=== PATIENT | male | born 1955 | race Caucasian/White ===

== ENCOUNTER 2022-08-25 08:16 | Inpatient (IN) ==
[2022-08-19 14:17] LABS: Basophils # (Auto) 0.04 K/mcL (0.00-0.30); Basophils % (Auto) 0.5 % (0.0-2.0); Eosinophils # (Auto) 0.19 K/mcL (0.00-0.70); Eosinophils % (Auto) 2.3 % (0.0-7.0); Hematocrit 47.8 % (40.1-51.0); Hemoglobin 16.7 g/dL (13.7-17.5); Lymphocytes # (Auto) 2.05 K/mcL (1.50-4.80); Lymphocytes % (Auto) 25.3 % (15.5-49.0); Mean Cell Volume 92.8 fL (80.0-100.0); Mean Corpuscular HGB Conc 34.9 g/dL (31.0-36.0); Mean Platelet Volume 10.2 fL (8.8-12.5); Monocytes # (Auto) 0.57 K/mcL (0.10-0.90); Neutrophils % (Auto) 64.7 % (38.0-78.0); Platelet Count 201 K/mcL (140-440); RBC 5.15 M/mcL (4.63-6.08); Red Cell Distribution Width 12.1 % (11.5-14.5); WBC 8.1 K/mcL (4.5-11.0)
[2022-08-19 14:21] LABS: Appearance,Urine CLEAR (Clear); Bilirubin,Urine Negative (Negative); Color,Urine YELLOW; Culture Indicated,Urine No; Glucose,Urine (UA) Negative (Negative); Ketones,Urine Negative (Negative); Leukocyte Esterase,Urine 25 /uL (Negative); Nitrate,Urine Negative (Negative); Protein,Urine Negative (Negative); Sperm,Urine PRESENT /hpf (Absent); Urine Blood Negative (Negative); Urine RBC 1 /hpf (0-3); Urine Squamous Epithelial Cell 0 /hpf (0-4); Urine WBC 5 /hpf (0-4); Urobilinogen,Urine Negative
[2022-08-19 14:38] LABS: Estimated Average Glucose(eAG) 108 mg/dL; Hemoglobin A1C 5.4 % Hgb (4.0-6.0)
[2022-08-19 15:11] LABS: ALT/SGPT 16 U/L (<40); AST/SGOT 22 U/L (<40); Albumin 4.5 gm/dL (3.2-5.2); Albumin/Globulin Ratio 1.6 (1.0-2.3); Alkaline Phosphatase 90 U/L (39-117); Bilirubin,Total 0.5 mg/dL (0.1-1.0); Blood Urea Nitrogen 13 mg/dL (8-23); Calcium 9.7 mg/dL (8.6-10.4); Carbon Dioxide 25 mmol/L (22-30); Chloride 102 mmol/L (96-108); Globulin 2.8 gm/dL (2.2-3.7); Glomerular Filtration Rate 93; Glucose 97 mg/dL (70-105)
--- NOTE | 2022-08-21 20:43 | EKG ---
[facility] Test Date: 2022-08-19 Pat Name: Leander Quinonez Department: RT Room: Gender: Male Computer Teacher: : [id number] Requested By: Moses Rucker Order Number: [id number] Reading MD: Tan Alvarez Measurements Intervals [place] Rate: 60 P: 6 VT: 174 QRS: -10 QRSD: 95 T: 33 QT: 409 QTc: 407 Interpretive Statements Sinus rhythm Electronically Signed On 08-21-2022 20:43:20 PDT by Tan Alvarez /[email or web address]/[id number]
[~2022-08-25 08:16] MED LIST: 0.9 % SODIUM CHLORIDE 9 ML, KETOROLAC 30 MG, ROPIVACAINE HCL/PF 49.5 ML, EPINEPHrine 0.... IJ SCH; CELECOXIB 200 MG CAPSULE PO SCH; PREGABALIN 75 MG CAPSULE PO SCH; ceFAZolin 2 GM in DEXTROSE 5% IN WATER 50 ML IV SCH; oxyCODONE 10 MG TAB.ER.12H PO SCH
[2022-08-25] MEDS ORDERED: SCOPOLAMINE 1 PATCH PATCH TOPICAL PRN (09:30)
[2022-08-25 09:56] LABS: Hemoglobin A1C 5.4 % Hgb (4.0-6.0)
[2022-08-25] MEDS ORDERED: TRANEXAMIC ACID 1,000 MG/10 ML VIAL ONE (12:23)
[2022-08-25] MEDS ORDERED: ONDANSETRON 4 MG/2 ML VIAL ONE (12:23)
[2022-08-25] MEDS ORDERED: HYDROmorphone 1 MG/ML SYRINGE ONE (12:23)
[2022-08-25] MEDS ORDERED: fentaNYL 250 MCG/5 ML VIAL IV ONE (12:23)
[2022-08-25] MEDS ORDERED: PROPOFOL 200 MG/20 ML VIAL IV ONE (12:23)
[2022-08-25] MEDS ORDERED: SUGAMMADEX SODIUM 200 MG/2 ML VIAL IV ONE (12:23)
[2022-08-25] MEDS ORDERED: ROPIVACAINE HCL/PF 20 ML VIAL IJ ONE (12:23)
[2022-08-25] MEDS ORDERED: ROCURONIUM 10 MG/ML ML IV ONE (12:23)
[2022-08-25] MEDS ORDERED: IPRATROPIUM/ALBUTEROL 3 ML AMPUL.NEB NEB PRN (12:54)
[2022-08-25] MEDS ORDERED: HYDROmorphone 0.5 MG/0.5 ML SYRINGE IV PRN (12:54)
[2022-08-25] MEDS ORDERED: METOCLOPRAMIDE 10 MG/2 ML VIAL IV PRN (12:54)
[2022-08-25] MEDS ORDERED: ONDANSETRON 4 MG/2 ML VIAL IV PRN ×2 (12:54→13:47)
[2022-08-25] MEDS ORDERED: FLUMAZENIL 0.1 MG/ML ML IV PRN (12:54)
[2022-08-25] MEDS ORDERED: NALOXONE HCL 0.4 MG/ML VIAL IV PRN (12:54)
[2022-08-25] MEDS ORDERED: MEPERIDINE 25 MG/ML VIAL IV PRN (12:54)
[2022-08-25] MEDS ORDERED: LACTATED RINGERS 1,000 ML IV SCH (13:00)
--- NOTE | 2022-08-25 13:37 | Brief Operative Note ---
Brief Operative Note Date of procedure: 08/25/22 Pre-op diagnosis: Left knee fractured polyethylene post s/p TKA Post-op diagnosis: same (plus some eburnated overhanging lateral patellar bone) Procedure: 1)Revision left total knee arthroplasty, 1 component (tibial) 2)Shaving of patella Grafts/Implants: Yes ([employer] size 7-8 11mm dished legion insert) Anesthesia: GLMA Findings: fracture polyethylene post, stable implants, eburnated lateral patell overhanging bone Complications: none Surgeon: Moses Ruano Information Security Analyst: Genaro Gorman Estimated blood loss (cc): 30 Specimens Removed/Pathology: none sent Condition: stable Disposition: PACU
[2022-08-25] MEDS ORDERED: FLEETS ADULT ENEMA PR PRN (13:47)
[2022-08-25] MEDS ORDERED: oxyCODONE/APAP 5/325MG TABLET PO PRN (13:47)
[2022-08-25] MEDS ORDERED: BISACODYL 10 MG SUPP.RECT PR PRN (13:47)
[2022-08-25] MEDS ORDERED: HYDROmorphone 1 MG/ML SYRINGE IV PRN (13:47)
[2022-08-25] MEDS ORDERED: TRANEXAMIC ACID 1,000 MG/10 ML VIAL IV ONE (13:47)
[2022-08-25] MEDS ORDERED: POLYETHYLENE GLYCOL 3350 17 GM PACKET PO PRN (13:47)
[2022-08-25] MEDS ORDERED: BENZOCAINE/MENTHOL 1 LOZENGE PO PRN (13:47)
[2022-08-25] MEDS ORDERED: MAGNESIUM HYDROXIDE 30 ML ORAL.SUSP PO PRN (13:47)
[2022-08-25] MEDS: fentaNYL 100 MCG/2 ML VIAL IV PRN ×4 (14:28→14:41)
--- NOTE | 2022-08-25 14:53 | XRay Report ---
CLINICAL INFORMATION: Post-op total knee COMPARISON: None. FINDINGS: Total knee prostheses is anatomically aligned. No osseous abnormalities. Periarticular soft tissue swelling seen as expected. IMPRESSION: Knee prostheses in anatomic alignment Interpreted and Authenticated by: Fer Gibbs 08/25/22
[2022-08-25] MEDS: 0.9 % SODIUM CHLORIDE 10 ML SYRINGE IV SCH ×2 (14:58→20:59)
--- NOTE | 2022-08-25 15:37 | Operative Note ---
DATE OF OPERATION: 08/25/2022 PREOPERATIVE DIAGNOSES: Left knee fractured polyethylene post, status post remote total knee arthroplasty. POSTOPERATIVE DIAGNOSES: Left knee fractured polyethylene post, status post remote total knee arthroplasty plus some eburnated bone overhanging the lateral patella. PROCEDURE PERFORMED: 1. Revision of the left total knee arthroplasty, one component, involving the tibial component with replacement of an 11 mm dished polyethylene insert. 2. Shaving of the prominent lateral patellar bone. SURGEON: Moses Ruano M.D. CUPOLA TAPPER: Evans Gorman PA-C. The assistance of the PA was required for the safe and efficient completion of the entire case. The expertise and technical skill of this provider was required throughout the case. The PA assisted with preoperative coordination, intraoperative retraction, wound closure, dressing and splint application, as well as postoperative documentation and care coordination. ANESTHESIA: General plus postoperative regional block. DRAINS: None. SPECIMENS: Removed polyethylene insert and fractured post. ESTIMATED BLOOD LOSS: Minimal. POSTOPERATIVE CONDITION: Stable. INDICATIONS FOR SURGERY: This is a 66-year-old male who approximately 15 years ago had undergone a left total knee arthroplasty. This had been functioning well until several weeks ago when he felt a pop and then noticed increased instability. Radiographs showed normal-appearing implants without evidence of radiographic loosening. Clinical exam revealed gross instability to drawer. FINDINGS AT SURGERY: There was a fractured polyethylene post. The femoral and tibial implants were well fixed without evidence of loosening. There was some eburnated bone lateral to the patellar component that appeared to have been articulating on the femoral component. PROCEDURE IN DETAIL: The patient had been seen preoperatively and informed consent had been obtained after discussion of risks and benefits of surgery. Risks including, but not limited to, bleeding; infection; injury to nerves, blood vessels, other surrounding structures; anesthetic risks; incomplete or no resolution of symptoms; stiffness; instability; possibility of needing further surgery. He understood these risks and wished to proceed. Correct operative site was marked in preoperative holding, and the patient was taken to the operating room. General anesthesia was induced. The left lower extremity was carefully prepped and draped in normal sterile fashion. A timeout was performed verifying patient name, operative site, and plan. Ioban was used to cover all skin surfaces after marking his previous incision with a skin marker. Esmarch was used to exsanguinate the extremity, and tourniquet was inflated to 300 mmHg. His previous scar was used with a scalpel through skin and subcutaneous tissue. Hemostasis was obtained with Bovie cautery. IrriSept was irrigated and then a medial parapatellar arthrotomy made. There was minimal effusion. A subperiosteal exposure was done of the anterior, medial and proximal tibia. We were then able to visualize the fractured post piece, which was removed. Retropatellar tendon scar tissue was excised and then we remove the tibial insert with an osteotome. We then did an inspection of the joint, both visually and then using a drift punch on the femoral and tibial implants. These were solid without evidence of loosening. We then trialed with a 9 dished insert. We felt this had too much laxity in flexion, so I went ahead and opened then an 11 mm dished insert. Our first attempt at this ended up not quite aligning the slot in the polyethylene with the baseplate and damaged the polyethylene locking mechanism, so we had to open a second. This one we were able to impact and fully seat. We did inspect the patella and there was eburnated bone overhanging lateral. We went ahead then and used a saw to excise this piece of bone. We then irrigated with IrriSept copiously, after a minute irrigated with saline copiously, and the knee was placed in about 45 degrees of flexion. A #5 FiberWire [id number] were used around the superior quadrant of the patella and a single one inferiorly and then the Stratafix sutures were used to close the quad tendon and patellar tendon. IrriSept was irrigated again, after a minute pulse lavaged with saline, and then 2-0 Monocryl was used for subcutaneous closure and servando for skin. Xeroform and a sterile dressing were applied. Tourniquet was released. The patient was awakened, extubated, and transferred to recovery in stable condition. RAYO:[email or web address] Job ID: [id number] Doc ID: [id number] Moses Ruano MD
[2022-08-25] MEDS: 0.9 % SODIUM CHLORIDE 1,000 ML IV SCH ×2 (15:46→23:00)
[2022-08-25] MEDS: KETOROLAC 30 MG/ML VIAL IV SCH (17:34)
[2022-08-25] MEDS ORDERED: MEPERIDINE 25 MG/ML VIAL IV SCH (19:07)
[2022-08-25] MEDS ORDERED: METOPROLOL TARTRATE 25 MG TABLET PO SCH (19:07)
[2022-08-25] MEDS: levETIRAcetam 500 MG TABLET PO SCH (20:32)
[2022-08-25] MEDS: lamoTRIgine 100 MG TABLET PO SCH (20:32)
[2022-08-25] MEDS: DOCUSATE SODIUM 100 MG CAPSULE PO SCH (20:34)
[2022-08-25] MEDS: ASPIRIN 81 MG TAB.CHEW PO SCH (20:34)
[2022-08-25] MEDS: ceFAZolin 1 GM VIAL IV SCH (20:49)
[2022-08-25] MEDS ORDERED: SENNOSIDES 1 TABLET PO SCH (21:00)
[2022-08-26] MEDS: KETOROLAC 30 MG/ML VIAL IV SCH ×2 (00:09→06:03)
[2022-08-26] MEDS: 0.9 % SODIUM CHLORIDE 1,000 ML IV SCH (00:10)
[2022-08-26] MEDS: ceFAZolin 1 GM VIAL IV SCH (03:49)
[2022-08-26] MEDS: 0.9 % SODIUM CHLORIDE 10 ML SYRINGE IV SCH (06:04)
[2022-08-26] MEDS ORDERED: OMEPRAZOLE 20 MG CAPSULE PO SCH (07:30)
--- NOTE | 2022-08-26 07:39 | Discharge Summary ---
Discharge Provider Provider IMPORTANT FOLLOW-UP INFORMATION FOR PCP: Patient information: Note initiated : 08/26/22 at 7:37 am Service Date, if different from initiated Date: [] Patient: Leander Quinonez 66 y/o M admitted on 08/25/22 for Left Total Knee Arthroplasty Revision, Removal of . Chief Complaint: [] Date of admission: 08/25/22 08:16 Discharge date: 08/26/22 COURSE Hospital Course Hospital course: Pt was admitted for a L TKA revision. Pt discharged to home post-op day 1. f/u 2 weeks. ASA for DVT prophylaxis. Discharge diagnosis: L knee broken poly Time Spent with Patient Time attestation: Total time spent providing and/or coordinating discharge services: Time spent: Less than 30 minutes Physical Examination Exam Clean and dry: Yes Weight bearing status: as tolerated Discharge Instructions - TKA Patient Instructions Total Knee Protocol: For Total Knee: Start ROM SHEY with stationary bike or rocking chair. Work on gaining full extension of knee. Posterior dislocation precautions provided. Hip abductor strengthening and gait training instructions provided. Apply Cryocuff as instructed. Dressing Care: May shower in 2 days Discharge Plan Patient/Caregiver Discharge Instructions Activity: increase activity as tolerated Diet: Regular Diet Prescriptions: New aspirin 81 mg tablet,delayed release (DR/EC) 81 mg PO BID Qty: 30 0RF acetaminophen [Acetaminophen Pain Relief] 500 mg tablet 1,000 mg PO TID Qty: 90 0RF meloxicam 7.5 mg tablet 7.5 mg PO QDAY Qty: 30 0RF oxycodone 5 mg tablet 5 mg PO Q6H PRN (Reason: pain) Qty: 15 0RF Continued multivitamin Capsule 2 cap PO QDAY Rx Instructions: Gummies lamotrigine 100 mg Tablet 100 mg PO BID levetiracetam 1,000 mg Tablet 1,000 mg PO BID omeprazole magnesium [Prilosec OTC] 20 mg Tablet,Delayed Release (Dr/Ec) 20 mg PO QAM Discontinued acetaminophen-codeine 300-60 mg tablet 1 tab PO BID PRN (Reason: pain) Qty: 14 0RF Other Ambulatory Orders: Physical Therapy at Discharge - TKA (Routine) Location: None Selected Ordered By: Genaro Potter (ONCE) Location: None Selected Ordered By: Genaro Gorman Follow Up Plan Follow up with: Moses Ruano MD [Physician] - 09/09/22 8:10 am Genaro Gorman PA-C [Physician Barrel Brander] - Patient Disposition: Home, Self-Care Rehab Potential: Good Overall status at discharge: patient is progressing back to baseline Discharge Orders: Discharge Order (Routine); Ordered 08/26/22 Ordered By: Genaro Gorman Pending Pending Pending: Resuscitation Status Limited Code Diet Regular Diet Start TueAug 25 1348 Aspirin (Aspirin 81 Mg Tab.Chew) 81 mg PO BID [facility] Last Admin: 08/25/22 20:34 Dose: 81 mg Documented By: NELLI Docusate Sodium (Docusate Sodium 100 Mg Capsule) 100 mg PO BID [facility] Last Admin: 08/25/22 20:34 Dose: 100 mg Documented By: NELLI Ketorolac Tromethamine (Ketorolac 30 Mg/Ml Vial) 30 mg IV Q6 [facility] Stop: 08/27/22 12:01 Last Admin: 08/26/22 06:03 Dose: 30 mg Documented By: Admin: 08/26/22 00:09 Dose: 30 mg Documented By: Admin: 08/25/22 17:34 Dose: 30 mg Documented By: HFJOAQUINZ Lamotrigine (Lamotrigine 100 Mg Tablet) 100 mg PO BID [facility] Last Admin: 08/25/22 20:32 Dose: 100 mg Documented By: NELLI Levetiracetam (Levetiracetam 500 Mg Tablet) 1,000 mg PO BID [facility] Last Admin: 08/25/22 20:32 Dose: 1,000 mg Documented By: NELLI Ondansetron HCl (Ondansetron 4 Mg/2 Ml Vial) 4 mg IV Q4HP PRN; Protocol PRN Reason: Nausea And Vomiting Last Admin: 08/25/22 22:07 Dose: 4 mg Documented By: NELLI Senna (Sennosides 1 Tablet) 2 tab PO HS [facility] Last Admin: 08/25/22 20:34 Dose: 2 tab Documented By: NELLI Sodium Chloride (0.9 % Sodium Chloride 10 Ml Syringe) 10 ml IV Q8 [facility] Last Admin: 08/26/22 06:04 Dose: 10 ml Documented By: Admin: 08/25/22 20:59 Dose: Not Given Documented By: Admin: 08/25/22 14:58 Dose: Not Given Documented By: HFULTZ Shift Summary 08/26/22 05:20 Shift Summary by Joellen Cai Admitted for left total knee. Had nausea & vomiting most of the first half of the shift. He denied need for meds several times because he always felt better after emesis. Did accept zofran around 2200 to hopefully help him not get nauseated again. Stood at bedside & side stepped a few times. Did not ambulate the halls d/t nausea. Has been voiding per urinal, QS. Oxygen at 2L for the night d/t low sats early in the shift & the nausea. Has been running 95-98%. Will turn off & check sats before shift change. BP has been on the high side since surgery: 150-160/70-100's. called & pt was given a one time dose of metoprolol. It helped some, but he is still running high. Was advised to follow up w/his primary soon to determine if meds will be needed. Will likely d/c home w/SO today. Initialized on 08/26/22 05:20 - END OF NOTE
[2022-08-26] MEDS: lamoTRIgine 100 MG TABLET PO SCH (07:53)
[2022-08-26] MEDS: ASPIRIN 81 MG TAB.CHEW PO SCH (07:53)
[2022-08-26] MEDS: DOCUSATE SODIUM 100 MG CAPSULE PO SCH (07:53)
[2022-08-26] MEDS: levETIRAcetam 500 MG TABLET PO SCH (07:53)
[2022-08-26] MEDS ORDERED: MULTIVIT,THER IRON,CA,FA & MIN 1 TABLET PO SCH (09:00)
== END 2022-08-26 10:13 | disposition home or self-care (01) | DRG 468 ==
LOC: MEDSUR 08:16
PROVIDERS: ADMIT Orthopaedic Surgery; ATTEND Physician Assistant Surgical